=== PATIENT | female | born 1985 | race Caucasian/White ===

== ENCOUNTER → 2017-06-24 | Outpatient (CLI) | payer MEDICAID ==
--- NOTE | 2017-06-24 11:15 | RADIOLOGY REPORT (SQ) ---
EXAM DESCRIPTION: U/S NON-OB PELVIS TV W/O DOP COMPLETED DATE/TIME: 06/24/2017 11:02 am REASON FOR STUDY: ENCOUNTER FOR ROUTINE CHECKING OF INTRAUTERINE CONTRACEPTIVE DEVICE Z30.431 ENCOU NTER FOR ROUTINE CHECKING OF INTRAUTERINE CONTR COMPARISON: None. TECHNIQUE: Dynamic and static grayscale images acquired of the pelvis via transvaginal approach and recorded on PACS. Additional selected color Doppler and spectral images recorded. LIMITATIONS: None. FINDINGS: UTERUS: Contour normal. No mass. ENDOMETRIAL STRIPE: IUD present CERVIX: No nabothian cysts. 3.1 cm RIGHT OVARY: No abnormal masses. RIGHT OVARY DOPPLER: Normal arterial vascular flow without evidence for torsion. LEFT OVARY: Not visualized not visualized LEFT OVARY DOPPLER: Not visualized FREE FLUID: None noted. OTHER: No other significant finding. MEASUREMENTS: UTERUS: 8.5 x 4.7 x 3.4 cm ENDOMETRIAL STRIPE: IUD present RIGHT OVARY: Simple ovarian cyst. 2.3 x 1.6 x 1.5 cm LEFT OVARY: Not visualized IMPRESSION: IUD present within the endometrial canal. Small right ovarian cyst. Left ovary not vis ualized. TECHNICAL DOCUMENTATION: JOB ID: [id number] [email or web address] All Rights Reserved
== END ==
LOC: RAD 10:11
PROVIDERS: ATTEND Nurse Practitioner Family
DX: Z30.431 Encounter for routine checking of intrauterine contraceptive device (principal)
CPT/HCPCS: 76830

== ENCOUNTER → 2018-01-19 | Outpatient (CLI) | payer OTHER ==
--- NOTE | 2018-01-19 09:09 | WOMENS IMAGING REPORT ---
EXAM DESCRIPTION: U/S ABDOMEN LIMITED COMPLETED DATE/TIME: 01/19/2018 8:32 am REASON FOR STUDY: EPIGASTRIC PAIN R10.13 EPIGASTRIC PAIN R11.2 NAUSEA WITH VOMITING, UNSPECIFIED COMPARISON: None. TECHNIQUE: Dynamic and static grayscale images acquired of the abdomen and recorded on PACS. Additio nal selected color Doppler and spectral images recorded. LIMITATIONS: None. FINDINGS: PANCREAS: No masses. Visualized pancreatic duct normal caliber. LIVER: The liver measures 12.4 cm in length, normal size. No masses. Echotexture normal. LIVER VASCULATURE: Normal directional flow of the main portal vein and hepatic veins. GALLBLADDER: No stones. The gallbladder wall measures 1.8 mm, normal wall thickness. No pericholecys tic fluid. ULTRASOUND-DETECTED ROBISON'S SIGN: Negative. INTRAHEPATIC DUCTS AND COMMON DUCT: CBD measures 3.3 mm in diameter, normal. The intrahepatic ducts normal caliber. No filling defects. INFERIOR VENA CAVA: Normal flow. AORTA: No aneurysm. RIGHT KIDNEY: The right kidney measures 11.5 x 3.8 x 5.3 cm, normal size. Normal echogenicity. No so lid or suspicious masses. No hydronephrosis. No calcifications. PERITONEAL AND RIGHT PLEURAL SPACE: No ascites or effusions. OTHER: No other significant findings. IMPRESSION: 1 Examination is unremarkable sonographically. TECHNICAL DOCUMENTATION: JOB ID: [id number] [employer]- All Rights Reserved Reading location - IP/workstation name: [email or web address]
== END ==
LOC: WI 07:38
PROVIDERS: ATTEND Internal Medicine Gastroenterology
DX: R10.13 Epigastric pain (principal); R11.2 Nausea with vomiting, unspecified
CPT/HCPCS: 76705